=== PATIENT | male | born 1960 | race African-American/Black ===

== ENCOUNTER 2022-06-15 08:44 | Outpatient (CLI) | payer MEDICAID | END 2022-06-15 08:45 | disposition home or self-care (01) | LOC: MADRAD 08:44 | PROVIDERS: ATTEND Internal Medicine | DX: I10 Essential (primary) hypertension (principal) | CPT/HCPCS: 71046 ==

== ENCOUNTER 2023-01-11 17:52 | Emergency (ER) | payer MEDICAID ==
[~2023-01-11 17:52] MED LIST: Lactated Ringer's 1,000 ML BAG ONE
[2023-01-11 18:44] LABS: INR-International Normal Ratio 1.1; Prothrombin Time 14.5 sec (12.0-14.7)
[2023-01-11 18:45] LABS: PTT 38.4 sec (22.9-36.1)
[2023-01-11 18:53] LABS: ALT (SGPT) 10 U/L (8-55); Albumin 3.5 g/dL (3.4-4.8); Alkaline Phosphatase 118 U/L (40-110); Anion Gap 16 mmol/L (10-20); BUN (Urea Nitrogen) 16 mg/dL (8.4-25.7); Calc. Creatinine Clearance 0 mL/min (70-130); Calcium 8.7 mg/dL (7.8-10.44); Carbon Dioxide 21 mmol/L (23-31); Chloride 108 mmol/L (98-107); Estimated GFR 86; Globulin 3.1 g/dL (2.4-3.5); Glucose 94 mg/dL (80-115); Potassium 4.6 mmol/L (3.5-5.1); Protein, Total 6.6 g/dL (5.8-8.1)
[2023-01-11 18:55] LABS: Hematocrit 40.5 % (42.0-52.0); Hemoglobin 12.8 g/dL (14.0-18.0); Mean Corpuscular HGB CONC 31.7 g/dL (32.0-36.0); Mean Corpuscular Hemoglobin 26.9 pg (27.0-31.0); Mean Corpuscular Volume 84.9 fl (78.0-98.0); Mean Platelet Volume 10.5 fL (7.4-10.4); Platelet Count 281 10x3/uL (130-400); RBC Distribution Width 14.8 % (11.5-14.5); Red Blood Cell (RBC) Count 4.77 mill/uL (4.70-6.10); White Blood Cell (WBC) Count 13.6 10x3/uL (4.8-10.8)
[2023-01-11 18:56] LABS: AST (SGOT) 19 U/L (5-34); Sodium 140 mmol/L (136-145)
[2023-01-11 19:08] LABS: Band 1 % (5-11); MDiff Complete? YES; Manual Diff?? YES; Neutrophil 67 % (42-75)
[2023-01-11 19:09] LABS: Eosinophils 2 % (0-10); Lymphocytes 10 % (21-51); Monocytes 2 % (0-10); Platelet Adequacy Comment Appears Adequate; RBC Morph Comment Within Normal Limits; Reactive Lymphocytes 18 % (0-10)
[2023-01-11 19:14] LABS: SARS-CoV-2 NAA Rapid Test Not Detected (NotDetected)
[2023-01-11 19:37] LABS: Bilirubin Small (Negative); Blood, Urine Negative (Negative); Clarity Clear (Clear); Glucose, Urine (Dipstick) Negative (Negative); Ketone, Urine Trace mg/dL (Negative); Leukocyte Negative (Negative); Nitrite Negative (Negative); Protein, Urine (Dipstick) Trace mg/dL (Neg-Trace); Specific Gravity, Urine 1.025 (1.005-1.030); pH, Urine 5.5 (5.0-9.0)
[2023-01-11 19:41] LABS: CAUTI Indications for Culture Fever or rigors; RBC/HPF 0-3 HPF (0-3); Squamous Epithelial 0-3 HPF (0-3); WBC/HPF None Seen HPF (0-3)
[2023-01-11 19:42] LABS: Urine Culture Reflex No No
== END 2023-01-11 21:42 ==
LOC: MADERS 17:52
DX: R50.9 Fever, unspecified (principal); R53.1 Weakness; R29.706 NIHSS score 6; I10 Essential (primary) hypertension; E78.5 Hyperlipidemia, unspecified; E66.9 Obesity, unspecified; F17.210 Nicotine dependence, cigarettes, uncomplicated; I69.351 Hemiplegia and hemiparesis following cerebral infarction affecting right dominant side; I69.320 Aphasia following cerebral infarction; Z20.822 Contact with and (suspected) exposure to COVID-19; Z79.82 Long term (current) use of aspirin; Z79.899 Other long term (current) drug therapy
CPT/HCPCS: 51701; 70450; 71045; 83605; 85610; 85730; 87040; 87149; 87804; 93005; 94760; 96360; J7120; U0002

== ENCOUNTER 2023-03-21 09:19 | Emergency (ER) | payer OTHER ==
[~2023-03-21 09:19] MED LIST changes: +Iopamidol 370 76% 100 ML VIAL ONE; -Lactated Ringer's 1,000 ML BAG ONE
[2023-03-21 10:00] LABS: #Eosinphils 0.2 thou/uL (0.0-0.7); #Lymphocytes 1.4 thou/uL (1.20-3.40); #Monocytes 0.4 thou/uL (0.11-0.59); #Neutrophils 8.2 thou/uL (1.40-6.50); %Basophils 0.3 % (0.0-1.0); %Eosinophils 1.5 % (0.0-10.0); %Lymphocytes 13.1 % (21.0-51.0); %Monocytes 4.2 % (0.0-10.0); Hematocrit 20.3 % (42.0-52.0); Hemoglobin 6.3 g/dL (14.0-18.0); Mean Corpuscular HGB CONC 30.8 g/dL (32.0-36.0); Mean Corpuscular Hemoglobin 29.2 pg (27.0-31.0); Mean Platelet Volume 7.5 fL (7.4-10.4); Platelet Count 287 10x3/uL (130-400); Red Blood Cell (RBC) Count 2.16 mill/uL (4.70-6.10); White Blood Cell (WBC) Count 10.3 10x3/uL (4.8-10.8)
[2023-03-21 10:03] LABS: ALT (SGPT) 12 U/L (8-55); AST (SGOT) 13 U/L (5-34); Albumin 3.4 g/dL (3.4-4.8); Alkaline Phosphatase 85 U/L (40-110); Anion Gap 15 mmol/L (10-20); BUN (Urea Nitrogen) 23 mg/dL (8.4-25.7); Bilirubin, Total 0.5 mg/dL (0.2-1.2); Calc. Creatinine Clearance 0 mL/min (70-130); Calcium 9.2 mg/dL (7.8-10.44); Carbon Dioxide 22 mmol/L (23-31); Chloride 112 mmol/L (98-107); Estimated GFR 73; Globulin 2.5 g/dL (2.4-3.5); Glucose 170 mg/dL (80-115); Potassium 4.3 mmol/L (3.5-5.1); Protein, Total 5.9 g/dL (5.8-8.1); Sodium 145 mmol/L (136-145)
[2023-03-21 10:05] LABS: CK (CPK) 39 U/L (30-200)
[2023-03-21 10:08] LABS: Troponin I 0.018 ng/mL (< 0.028)
[2023-03-21 10:14] LABS: Anisocytosis SLIGHT = 6-15 cells (100X) (0-5/hpf); Platelet Adequacy Comment Appears Adequate
[2023-03-21 10:15] LABS: INR-International Normal Ratio 1.5; PTT 34.2 sec (22.9-36.1); Prothrombin Time 18.5 sec (12.0-14.7)
[2023-03-21] MEDS ORDERED: Sodium Chloride 0.9% 500 ML ONE (11:01)
[2023-03-21 11:02] LABS: Bilirubin Negative (Negative); Blood, Urine Negative (Negative); Clarity Clear (Clear); Glucose, Urine (Dipstick) Negative (Negative); Ketone, Urine Negative (Negative); Leukocyte Trace (Negative); Nitrite Negative (Negative); Protein, Urine (Dipstick) Negative (Neg-Trace); Urobilinogen 0.2 mg/dL (Less than 2); pH, Urine 5.5 (5.0-9.0)
[2023-03-21 11:10] LABS: CAUTI Indications for Culture Alt mental st,lethar; RBC/HPF 0-3 HPF (0-3); Squamous Epithelial 0-3 HPF (0-3); WBC/HPF 0-3 HPF (0-3)
[2023-03-21 11:11] LABS: Bacteria/HPF Rare-Few HPF (None Seen); Urine Culture Reflex No No
[2023-03-21 17:55] LABS: Hematocrit 24.4 % (42.0-52.0); Hemoglobin 7.8 g/dL (14.0-18.0)
[2023-03-22 00:12] LABS: Hematocrit 22.6 % (42.0-52.0); Hemoglobin 7.4 g/dL (14.0-18.0)
[2023-03-22 05:57] LABS: Hemoglobin 6.7 g/dL (14.0-18.0)
== END 2023-03-22 14:24 | disposition short-term general hospital (02) ==
LOC: MADERS 09:19
DX: K92.2 Gastrointestinal hemorrhage, unspecified (principal); D64.9 Anemia, unspecified; K21.9 Gastro-esophageal reflux disease without esophagitis; E78.5 Hyperlipidemia, unspecified; I10 Essential (primary) hypertension; E66.9 Obesity, unspecified; F17.210 Nicotine dependence, cigarettes, uncomplicated; Z79.899 Other long term (current) drug therapy; Z79.82 Long term (current) use of aspirin
CPT/HCPCS: 36415; 36430; 70450; 74177; 80053; 81001; 82274; 82550; 84484; 85025; 85610; 85730; 86850; 86900; 86901; J7030; P9016; Q9967

== ENCOUNTER 2023-03-31 13:51 | Emergency (ER) | payer OTHER ==
[2023-03-31 15:32] LABS: #Eosinphils 0.2 thou/uL (0.0-0.7); #Lymphocytes 1.7 thou/uL (1.20-3.40); #Monocytes 0.5 thou/uL (0.11-0.59); #Neutrophils 6.7 thou/uL (1.40-6.50); %Basophils 0.4 % (0.0-1.0); %Eosinophils 1.9 % (0.0-10.0); %Lymphocytes 18.6 % (21.0-51.0); %Monocytes 5.9 % (0.0-10.0); %Neutrophils 73.2 % (42.0-75.0); Anisocytosis SLIGHT = 6-15 cells (100X) (0-5/hpf); Hematocrit 17.5 % (42.0-52.0); Hemoglobin 5.5 g/dL (14.0-18.0); Mean Corpuscular HGB CONC 31.3 g/dL (32.0-36.0); Mean Corpuscular Hemoglobin 30.4 pg (27.0-31.0); Mean Corpuscular Volume 97.3 fl (78.0-98.0); Mean Platelet Volume 8.2 fL (7.4-10.4); Platelet Count 192 10x3/uL (130-400); Poikilocytosis SLIGHT = 6-15 cells (100X) (0-5/hpf); RBC Distribution Width 18.8 % (11.5-14.5); White Blood Cell (WBC) Count 9.2 10x3/uL (4.8-10.8)
[2023-03-31 15:33] LABS: Hypochromia MODERATE=16-30 cells (100X) (0-5/hpf); Polychromasia MARKED = >4 cells (100X) (0-2/hpf)
[2023-03-31 16:21] LABS: ALT (SGPT) 12 U/L (8-55); AST (SGOT) 14 U/L (5-34); Albumin 3.1 g/dL (3.4-4.8); Alkaline Phosphatase 68 U/L (40-110); Anion Gap 11 mmol/L (10-20); BUN (Urea Nitrogen) 20 mg/dL (8.4-25.7); Bilirubin, Total 0.4 mg/dL (0.2-1.2); Calc. Creatinine Clearance 0 mL/min (70-130); Calcium 8.6 mg/dL (7.8-10.44); Carbon Dioxide 24 mmol/L (23-31); Chloride 111 mmol/L (98-107); Estimated GFR 97; Glucose 119 mg/dL (80-115); Protein, Total 5.1 g/dL (5.8-8.1); Sodium 142 mmol/L (136-145)
[2023-03-31 17:41] LABS: INR-International Normal Ratio 1.5; Prothrombin Time 18.9 sec (12.0-14.7)
[2023-03-31 17:42] LABS: PTT 31.8 sec (22.9-36.1)
[2023-03-31] MEDS ORDERED: Pantoprazole 40 MG VIAL ONE (17:52)
== END 2023-03-31 20:59 | disposition short-term general hospital (02) ==
LOC: MADERS 13:51
DX: S00.83XA Contusion of other part of head, initial encounter (principal); D62 Acute posthemorrhagic anemia; G81.91 Hemiplegia, unspecified affecting right dominant side; E78.5 Hyperlipidemia, unspecified; I10 Essential (primary) hypertension; W19.XXXA Unspecified fall, initial encounter; Z86.73 Personal history of transient ischemic attack (TIA), and cerebral infarction without residual deficits; Z86.72 Personal history of thrombophlebitis; Z79.01 Long term (current) use of anticoagulants; Z79.899 Other long term (current) drug therapy; F17.210 Nicotine dependence, cigarettes, uncomplicated
CPT/HCPCS: 36415; 36430; 36556; 70450; 71045; 72125; 80053; 82274; 85025; 85610; 85730; 86850; 86900; 86901; 96374; C9113; P9016

== ENCOUNTER 2024-11-12 08:41 | Outpatient (CLI) | payer OTHER ==
[2024-11-12 09:24] LABS: Anion Gap 15 mmol/L (10-20); BUN (Urea Nitrogen) 11 mg/dL (8.4-25.7); Calc. Creatinine Clearance 0 mL/min (70-130); Calcium 8.2 mg/dL (7.8-10.44); Carbon Dioxide 26 mmol/L (23-31); Chloride 105 mmol/L (98-107); Glucose 96 mg/dL (80-115); Potassium 3.6 mmol/L (3.5-5.1); Sodium 142 mmol/L (136-145)
[2024-11-12 09:33] LABS: #Basophils 0.0 thou/uL (0.0-0.2); #Eosinophils 0.8 thou/uL (0.0-0.7); #Lymphocytes 2.3 thou/uL (1.20-3.40); #Monocytes 0.5 thou/uL (0.11-0.59); #Neutrophils 6.0 thou/uL (1.40-6.50); %Basophils 0.3 % (0.0-1.0); %Eosinophils 8.2 % (0.0-10.0); %Lymphocytes 24.1 % (21.0-51.0); %Monocytes 5.3 % (0.0-10.0); %Neutrophils 62.1 % (42.0-75.0); Hematocrit 40.3 % (42.0-52.0); Hemoglobin 12.4 g/dL (14.0-18.0); Mean Corpuscular Hemoglobin 24.9 pg (27.0-31.0); Mean Corpuscular Volume 81.1 fl (78.0-98.0); Platelet Count 258 10x3/uL (130-400); Red Blood Cell (RBC) Count 4.96 mill/uL (4.70-6.10); White Blood Cell (WBC) Count 9.7 10x3/uL (4.8-10.8)
[2024-11-12 09:37] LABS: Polychromasia SLIGHT = 2-3 cells (100X) (0-2/hpf)
== END 2024-11-12 08:42 | disposition home or self-care (01) ==
LOC: MADLAB 08:41
PROVIDERS: ATTEND Family Medicine
DX: I63.50 Cerebral infarction due to unspecified occlusion or stenosis of unspecified cerebral artery (principal); E78.5 Hyperlipidemia, unspecified; I10 Essential (primary) hypertension; D64.9 Anemia, unspecified
CPT/HCPCS: 80048; 85025